=== PATIENT | male | born 1950 | race Caucasian/White ===

== ENCOUNTER 2017-07-08 11:22 | Emergency (ER) | payer MEDICARE ==
[~2017-07-08] VITALS: Ht 170.2 cm; Wt 68.9 kg
--- NOTE | 2017-07-08 12:08 | RAD ---
Indication cough. PA and lateral views of the chest were obtained. No prior imaging of the chest is available. The heart and pulmonary vessels appear normal. The lungs are clear. There is no pleural fluid or pneumothorax. There are some modest degenerative changes in the thoracic spine. IMPRESSION:: No acute finding is seen in the chest
[2017-07-08] MEDS ORDERED: ZOLP5TAB5 PO (12:12)
[2017-07-08] MEDS ORDERED: ALBU8.5H8 INH (12:12)
--- NOTE | 2017-07-08 12:12 | PHYS DOC ---
Past History Past Medical History: High Cholesterol Past Surgical History: Knee Replacement, Other Alcohol Use: None Drug Use: None Adult General Chief Complaint Chief Complaint: COUGH HPI HPI 67-year-old gentleman presenting with a cough. His cough is been present for 7 days. He denies productive sputum. he denies fever. He denies nausea or vomiting. Location lungs. Duration intermittent. No alleviating or exacerbating factors present. Review of systems is negative for chest pain abdominal pain nausea vomiting fevers or chills. All other review of systems is negative unless otherwise noted in history of present illness. ED course: 67-year-old gentleman presenting with a cough that is nonproductive. Vital signs unremarkable. Chest x-ray negative for pneumonia. Patient was given inhaler and zolpidem as needed for sleep at night. He was subsequent discharged home in stable condition. The patient was then discharged home in stable condition to follow up with their primary care physician over the next 2-3 days. They were to return if their symptoms worsened or if they were concerned for any reason. [id number] discharge instructions and return precautions were given. Patient's questions were answered to their satisfaction. Patient is comfortable plan. Review of Systems Review of Systems SEE ABOVE. Allergies Allergies Allergies Coded Allergies Type Severity Reaction Last Updated Verified No Known Drug Allergies 07/08/17 No Physical Exam Physical Exam Constitutional: Well developed, well nourished, no acute distress, non-toxic appearance. [] HENT: Normocephalic, atraumatic, bilateral external ears normal, oropharynx moist, no oral exudates, nose normal. [] Eyes: PERRLA, EOMI, conjunctiva normal, no discharge. [] Neck: Normal range of motion, no tenderness, supple, no stridor. [] Cardiovascular:Heart rate regular rhythm, no murmur [] Lungs & Thorax: Bilateral breath sounds clear to auscultation [] Abdomen: Bowel sounds normal, soft, no tenderness, no masses, no pulsatile masses. [] Skin: Warm, dry, no erythema, no rash. [] Back: No tenderness, no CVA tenderness. [] Extremities: No tenderness, no cyanosis, no clubbing, ROM intact, no edema. [] Neurologic: Alert and oriented X 3, normal motor function, normal sensory function, no focal deficits noted. [] Psychologic: Affect normal, judgement normal, mood normal. [] Current Patient Data Vital Signs Vital Signs Date Time Temp Pulse Resp B/P (MAP) Pulse Ox O2 Delivery O2 Flow Rate FiO2 07/08/17 11:34 97.9 65 18 99 Room Air EKG EKG [] Radiology/Procedures Radiology/Procedures [] Course & Med Decision Making Course & Med Decision Making Pertinent Labs and Imaging studies reviewed. (See chart for details) [] Dragon Disclaimer Dragon Disclaimer This chart was dictated in whole or in part using Voice Recognition software in a busy, high-work load, and often noisy Emergency Department environment. It may contain unintended and wholly unrecognized errors or omissions. Departure Departure: Impression: Primary Impression: Cough Disposition: HOME, SELF-CARE Condition: STABLE Referrals: NON,STAFF (PCP) Patient Instructions: Cough, Adult Additional Instructions: Thank you for allowing us to participate in your care today. Followup with your primary care physician in 3 days if your symptoms do not improve. Call your Primary Doctor tomorrow and inform them of your visit today. If you do not have a primary care provider you can ask for a list of our primary care providers. Return to the emergency department you have any new or concerning findings. This should be evaluated by the primary care physician and any necessary consulting services for continued management within a few days after discharge. Return to emergency room if you have any new or concerning symptoms including but not limited to fever, chills, nausea, vomiting, intractable pain, any new rashes, chest pain, shortness of air, uncontrolled bleeding, difficulty breathing, and/or vision loss. Scripts Zolpidem Tartrate (ZOLPIDEM TARTRATE) 5 Mg Tablet 1 TAB PO QHS, #7 TAB 0 Refills Prov: NALLELY MENCHACA MD 07/08/17 Albuterol Sulfate (PROAIR HFA INHALER) 8.5 Gm Hfa.aer.ad 1 PUFF INH PRN Q6HRS Y for SHORTNESS OF BREATH, #1 INHALER 0 Refills Prov: NALLELY MENCHACA MD 07/08/17 NALLELY MENCHACA MD Jul 08, 2017 12:12
[2017-07-08 12:20] VITALS: BP 123/75
== END 2017-07-08 12:20 | disposition home or self-care (01) ==
LOC: ER 11:22
DX: R05 Cough (principal); E78.00 Pure hypercholesterolemia, unspecified
CPT/HCPCS: 71020; 99284